=== PATIENT | female | born 1970 | race Caucasian/White ===

== ENCOUNTER 2016-12-13 08:00 | Emergency (ER) | payer BC ==
[~2016-12-13] VITALS: Ht 170.2 cm; Wt 78.5 kg
[2016-12-13 08:10] VITALS: Ht 170.2 cm; Wt 78.5 kg
[2016-12-13] MEDS ORDERED: XYLOCAINE 1%/SOD BICARB 20 ML VIAL INFIL ONE (08:39)
[2016-12-13] MEDS ORDERED: HYDROCODONE/ACETAMOPHEN 5/325MG TAB PO STA (08:54)
--- NOTE | 2016-12-13 09:01 | EMERGENCY ROOM VISIT NOTE ---
History Report prepared by Kanikaibkeysha: Brissa Tracy Under the Supervision of: Dr. Matthew Cardoza M.D. First contact with patient: 08:36 Chief Complaint: HEAD INJURY (MINOR) Stated Complaint: FELL ON ICE, HIT HEAD, CUT, HEADACHE History of Present Illness The patient is a 46 year old female who presents to the Emergency Room with complaints of a persistent headache secondary to a fall starting about an hour ago. The patient slipped and fell on ice. She reports hitting her head and losing consciousness. She has a laceration on her left forehead. She currently rates a pain intensity of 5/10. She denies any vision problems, neck pain, or any other complaints. Her tetanus shot is up-to-date. She has been having cold- like symptoms for the past week and a half. The patient does not have any medical problems. Source of History: patient Onset: about an hour ago Position: head Symptom Intensity: 5/10 Timing: other (persistent) Associated Symptoms: + LOC, No neck pain Review of Systems See HPI for pertinent positives & negatives. A total of 10 systems reviewed and were otherwise negative. Past Medical & Surgical Medical Problems: (1) Headache Family History Patient reports no known family medical history. Social History Smoking Status: Never Smoker Marital Status: Housing Status: lives with significant other Occupation Status: employed Current/Historical Medications Scheduled Amoxicillin (Amoxil), 500 MG PO TID Scheduled PRN Hydrocodone/Acetaminophen 5MG/325MG (Apex 5MG/325MG), 1 TABLET PO Q6 PRN for Pain Allergies Coded Allergies: No Known Allergies (Unverified , 12/13/16) Physical Exam Vital Signs Date Time Temp Pulse Resp B/P Pulse Ox O2 Delivery O2 Flow Rate FiO2 12/13/16 11:15 37.1 105 148/82 96 Room Air 12/13/16 08:53 91 12/13/16 08:50 16 12/13/16 08:10 37.2 91 18 187/109 97 Room Air Physical Exam GENERAL: Patient is a healthy-appearing well-nourished HEAD: Normocephalic 2.6 cm laceration on the left forehead EYES: Ocular movements intact pupils equal and react to light OROPHARYNX mucous membranes are moist no exudates present no erythema or edema present NECK: Supple no nuchal rigidity. No pain to the midline of the neck. CHEST: Good equal expansion LUNGS: Bilateral wheezing present CARDIAC: Normal S1 and S2 ABDOMEN: Soft nontender no guarding BACK: No CVA tenderness. No midline tenderness. EXTREMITIES: No pain upon palpation normal muscle strength in all groups no clubbing cyanosis or edema NEURO: Patient is following commands is answering questions appropriately. Alert and oriented x3 Cranial Nerves 2-12 grossly intact Medical Decision & Procedures ER Provider Diagnostic Interpretation: X-ray results as stated below per interpretation by me and the radiologist: CHEST ONE VIEW PORTABLE CLINICAL HISTORY: Wheezing. Trauma. COMPARISON STUDY: 06/01/2016 FINDINGS: The cardiac and mediastinal contours are normal. There is no evidence of focal pulmonary consolidation. There is no evidence of failure. No pleural effusions are visualized.[ IMPRESSION: No active disease in the chest. Electronically signed by: Collins Trejo M.D. 12/13/2016 10:19 AM Dictated Date/Time: 12/13/2016 10:[address] results as stated below per my review and radiologist interpretation: CT SCAN OF THE BRAIN WITHOUT IV CONTRAST CLINICAL HISTORY: Fall with head injury. COMPARISON STUDY: CT of the brain dated 06/01/2016. TECHNIQUE: Unenhanced axial CT scan of the brain is performed from the vertex to the skull base. Automated dose control exposure was utilized. CT DOSE: 614.27 mGy.cm FINDINGS: Brain parenchyma: The brain parenchyma is normal in appearance. There is no hemorrhage, mass effect, or evidence of acute territorial ischemia by CT criteria. Simmons-white matter is preserved. No extra-axial fluid collection is seen. Ventricles, sulci, cisterns: Normal in configuration. Intracranial vasculature: The visualized intracranial vasculature at the skull base is normal in appearance. Calvarium: There is no depressed femoral fracture. Soft tissues: There is a left frontal scalp contusion/laceration. Sinuses and mastoids: Moderate mucosal thickening an air-fluid level seen within the left maxillary antrum. There is trace mucosal thickening in the right maxillary antrum and the right sphenoid sinus. Moderate mucosal thickening is seen in the ethmoid sinuses. The mastoid air cells are well pneumatized. Orbits: The bony orbits are grossly intact. IMPRESSION: 1. No acute intracranial abnormality. 2. Paranasal sinus disease as above. Correlated clinically for evidence of acute sinusitis. Electronically signed by: Maximilian Bolton M.D. 12/13/2016 9:29 AM Dictated Date/Time: 12/13/2016 9:27 AM Medications Administered Medications (Trade) Dose Ordered Sig/Irvin Route Start Time Stop Time Status Last Admin Dose Admin Acetaminophen/ Hydrocodone Bitart (Apex 5/325 Tab) 2 tab NOW STAT PO 12/13/16 08:54 12/13/16 08:56 DC 12/13/16 09:05 2 TAB Albuterol (Ventolin Hfa Inhaler) 2 puffs NOW STAT INH 12/13/16 09:46 12/13/16 09:47 DC 12/13/16 10:24 2 PUFFS Albuterol Sulfate (Ventolin 0.5% 2.5MG/0.5ML Neb) 2.5 mg NOW STAT INH 12/13/16 09:46 12/13/16 09:47 DC 12/13/16 10:24 2.5 MG Amoxicillin (Amoxil Cap) 500 mg NOW STAT PO 12/13/16 10:28 12/13/16 10:29 DC 12/13/16 11:12 500 MG Procedure Location: left forehead Total length: 2.6 cm Complexity: Simple linear Verbal consent was obtained after the risks and benefits were explained, including but not limited to bleeding, scarring, infection, pain, and bone/joint /nerve damage. At this time, the risks of the procedure are less than the risks of NOT performing the procedure. A time out was taken and the correct patient and site identified. The skin was prepped with betadine. The target area was anesthetized with 4 ml of 1% lidocaine without epinephrine. Copious irrigation was performed using 500 cc normal saline. The skin was re-prepped with betadine and a sterile field set. The wound was explored for foreign bodies and none found. Examination revealed no injury to deep structures such as tendons, bone, or significant blood vessels. Debridement was not performed. The wound edges were approximated using 4, 5-0 simple interrupted nylon sutures. Hemostasis and excellent approximation was achieved. Antibacterial ointment and a sterile dressing applied. Detailed wound care instructions and signs and symptoms of infection reviewed with the patient. No complications and the patient tolerated the procedure well. ED Course 0836: Past medical records reviewed. The patient was evaluated in room A12B. A complete history and physical examination was performed. 0854: Acetaminophen/Hydrocodone Bitart 2 tab PO 0946: Albuterol Sulfate 2.5 mg INH, Albuterol 2 puffs INH 1028: Amoxicillin 500 mg PO 1030: Upon reexamination the patient is resting comfortably. I discussed results and treatment plan with the patient. She verbalizes agreement and understanding. The patient is ready for discharge. Medical Decision Differential diagnosis: Etiologies such as fracture, dislocation, intra-abdominal, pneumothorax, intrathoracic , intracranial, neurologic, as well as other traumatic pathologies were entertained. This 46-year-old female who presents emergency department complaining of laceration to the head after a fall. In addition to the laceration the patient is also complaining of cough that has been ongoing for the past week. She is wheezing on examination and has sinusitis-like issues. She denies headache and has no evidence of meningitis encephalitis on examination. Patient was sent for CAT scan of the head which did not show any evidence of acute fracture dislocation. The laceration was repair as above. She was given albuterol inhaler in the emergency department along with an albuterol breathing treatment. Her chest x-rays clean. The patient was started on amoxicillin here and continued on that. Patient was in agreement with the treatment plan. Impression Primary Impression: Closed head injury Additional Impressions: Laceration Sinusitis Scribe Attestation The scribe's documentation has been prepared under my direction and personally reviewed by me in its entirety. I confirm that the note above accurately reflects all work, treatment, procedures, and medical decision making performed by me. Departure Information Dispostion Home / Self-Care Prescriptions Hydrocodone/Acetaminophen 5MG/325MG (Apex 5MG/325MG) Tab 1 TABLET PO Q6 Y for Pain, #14 TAB Prov: Matthew Cardoza MD 12/13/16 Amoxicillin (AMOXIL) 500 Mg Cap 500 MG PO TID, #30 CAP Prov: Matthew Cardoza MD 12/13/16 Referrals Wil Pena M.D.([facility]) (PCP) Forms HOME CARE DOCUMENTATION FORM, IMPORTANT VISIT INFORMATION Patient Instructions ED Bronchitis Abx Tx, ED Head Injury Closed, ED Scar Tips to Minimize, ED Sinusitis Abx Tx, My [facility], Sinusitis Acute, Sinusitis Self Care Additional Instructions Sutures out in 7-10 days You received narcotic or benzodiazepene medication while in the emergency room today. Do not drive, operate heavy machinery, or drink alcohol under the influence of this medication. Take 600 mg Ibuprofen every 6 hours Take Apex for breakthrough pain You have been examined and treated today on an emergency basis only. This is not a substitute for, or an effort to provide, complete comprehensive medical care. It is impossible to recognize and treat all injuries or illnesses in a single emergency department visit. It is therefore important that you follow up closely with Dr Pena. Call as soon as possible for an appointment. Thank you for your time and consideration. I look forward to speaking with you again soon. Please don't hesitate to call us if you have any questions. Problem Qualifiers Primary Impression: Closed head injury Encounter type: initial encounter Qualified Codes: S09.90XA - Unspecified injury of head, initial encounter Additional Impressions: Sinusitis Sinusitis location: frontal Chronicity: acute Recurrence: not specified as recurrent Qualified Codes: J01.10 - Acute frontal sinusitis, unspecified
--- NOTE | 2016-12-13 09:30 | DIAGNOSTIC IMAGING REPORT ---
CT SCAN OF THE BRAIN WITHOUT IV CONTRAST CLINICAL HISTORY: Fall with head injury. COMPARISON STUDY: CT of the brain dated 06/01/2016. TECHNIQUE: Unenhanced axial CT scan of the brain is performed from the vertex to the skull base. Automated dose control exposure was utilized. CT DOSE: 614.27 mGy.cm FINDINGS: Brain parenchyma: The brain parenchyma is normal in appearance. There is no hemorrhage, mass effect, or evidence of acute territorial ischemia by CT criteria. Simmons-white matter is preserved. No extra-axial fluid collection is seen. Ventricles, sulci, cisterns: Normal in configuration. Intracranial vasculature: The visualized intracranial vasculature at the skull base is normal in appearance. Calvarium: There is no depressed femoral fracture. Soft tissues: There is a left frontal scalp contusion/laceration. Sinuses and mastoids: Moderate mucosal thickening an air-fluid level seen within the left maxillary antrum. There is trace mucosal thickening in the right maxillary antrum and the right sphenoid sinus. Moderate mucosal thickening is seen in the ethmoid sinuses. The mastoid air cells are well pneumatized. Orbits: The bony orbits are grossly intact. IMPRESSION: 1. No acute intracranial abnormality. 2. Paranasal sinus disease as above. Correlated clinically for evidence of acute sinusitis. Electronically signed by: Maximilian Bolton M.D. 12/13/2016 9:29 AM Dictated Date/Time: 12/13/2016 9:27 AM
[2016-12-13] MEDS ORDERED: ALBUTEROL 0.5% NEB SOLN 2.5 MG/0.5 ML VIAL INH STA (09:46)
[2016-12-13] MEDS ORDERED: ALBUTEROL HFA 8 GM INHALER INH STA (09:46)
--- NOTE | 2016-12-13 10:20 | DIAGNOSTIC IMAGING REPORT ---
CHEST ONE VIEW PORTABLE CLINICAL HISTORY: Wheezing. Trauma. COMPARISON STUDY: 06/01/2016 FINDINGS: The cardiac and mediastinal contours are normal. There is no evidence of focal pulmonary consolidation. There is no evidence of failure. No pleural effusions are visualized.[ IMPRESSION: No active disease in the chest. Electronically signed by: Collins Trejo M.D. 12/13/2016 10:19 AM Dictated Date/Time: 12/13/2016 10:19 AM
[2016-12-13] MEDS ORDERED: AMOXICILLIN 250 MG CAP PO STA (10:28)
[2016-12-13] MEDS ORDERED: AMOX500C3 PO (10:29)
[2016-12-13] MEDS ORDERED: HYDR-5688 PO (10:33)
[2016-12-13 11:15] VITALS: BP 148/82; PULSE 105; TEMP 37.1; O2SAT 96
== END 2016-12-13 11:20 | disposition home or self-care (01) ==
LOC: C.EDB 08:01 → C.EDA 11:20
DX: S01.81XA Laceration without foreign body of other part of head, initial encounter (principal); J32.9 Chronic sinusitis, unspecified; W00.0XXA Fall on same level due to ice and snow, initial encounter